=== PATIENT | female | born 1950 | race Caucasian/White ===

== ENCOUNTER 2023-02-23 07:41 | Outpatient (OUT) | payer MEDICARE, SELFPAY ==
--- NOTE | 2023-02-23 08:44 | CA_ITS ---
Patient Name: DI LONGO MR#: [id number] : 1950 Exam Date: 02/23/2023 Ordering Doctor: DR NGHIA CARDENAS M.D. ECHOCARDIOGRAM REPORT PROCEDURE: CA ECHO DOPPLER COMPLETE INDICATIONS: Structural heart disease, hypertension, h/o PFO closure COMPARISON: None. DESCRIPTION: COMPLETE ECHOCARDIOGRAM Real-time transthoracic echocardiography with 2D, M-mode, spectral and color flow Doppler performed. QUALITY: Technical quality was good. 64 , 248#, BSA 2.14 m2 LEFT VENTRICLE: Normal chamber size. Proximal septal hypertrophy (sigmoid septum). LV EF: Normal left ventricular ejection fraction, (>55%). DIASTOLIC: Normal diastolic function. ATRIAL SEPTUM: Intra-atrial septum appearance consistent with prior closure device; device appears stable. No obvious residual shunting seen by color Doppler. No subcostal windows available. LEFT ATRIUM: Normal chamber size. RIGHT ATRIUM: Normal chamber size. RIGHT VENTRICLE: Normal chamber size. Normal right ventricular systolic function. TRICUSPID VALVE: Normal mobility and thickness. No stenosis with trivial regurgitation. No evidence of pulmonary hypertension. RVSP 33 mmHg MITRAL VALVE: Normal mobility and thickness. No evidence of mitral valve stenosis. There is no mitral annular calcification. Trivial mitral regurgitation. AORTIC VALVE: Normal trileaflet appearance. No visible sclerosis. Normal leaflet mobility. No evidence of aortic valve stenosis. Mild aortic regurgitation. AORTIC ROOT: Normal diameter and appearance. PULMONIC VALVE: Normal thickness and mobility. No stenosis. Trivial regurgitation. PERICARDIUM: Anterior free space; trivial effusion versus fat pad. IVC: Not well visualized. CONCLUSION: 1. Global left ventricular systolic function is normal; visually estimated ejection fraction is 55 to 60% 2. Normal right ventricular size and systolic function 3. Normal left atrial size 4. Intra-atrial septal closure device seen; appears stable in position. No obvious residual shunt by color-flow Doppler 5. Mild aortic valve regurgitation 6. Anterior free space; trivial effusion versus fat pad Adult Echocardiography Procedure Report Left Ventricle LVEDD (3.7 - 5.6 cm): 3.66 cm LVESD (2.2 - 4.0 cm): 1.94 cm LVIVS thickness (0.6 - 1.2 cm): 1.31 cm LVPW thickness (0.5 - 1.0 cm): 0.84 cm e': 0.10 m/s E - e': 6.89 LVOT Max Gradient: 4.23 mm[Hg] LVOT Area (cm2): 1.03 m/s Peak Velocity (LVOT): 1.03 m/s Mean Velocity (LVOT): 0.70 m/s LVOT Diameter 1.92 cm Left Atrium LA Volume Index (2D A2C): 20.59 ml/m2 Left Atrium Systolic Dimension: 3.13 cm Mitral Valve MV E to A Ratio: 1.02 Mitral Valve A-Wave Peak Velocity: 0.70 m/s Mitral Valve E-Wave Peak Velocity: 0.71 m/s Right Ventricle Aorta AO Root Diam: 3.02 cm Ascending Ao Diam: 3.29 cm Aortic Valve AoV Area (Peak Eulogio): 2.13 cm2, 2.13 cm2 AoV Area (VTI): 2.50 cm2, 2.50 cm2 Peak Velocity(Antegrade Flow): 1.39 m/s Peak Gradient(Antegrade Flow): 7.78 mm[Hg] Mean Velocity(Antegrade Flow): 0.92 m/s Mean Gradient(Antegrade Flow): 3.93 mm[Hg] Velocity Time Integral: 29.73 cm Tricuspid Valve Peak Velocity (Regurgitant Flow): 2.74 m/s Pulmonic Valve Peak Velocity: 0.84 m/s Peak Gradient: 3.06 mm[Hg], 2.58 mm[Hg] Right Atrium Right Atrium Systolic Pressure: 45.77 ml, 45.77 ml Dictated by: Valerie Mcdaniels M.D. on 02/23/2023 at 14:44 Approved by: Valerie Mcdaniels M.D. on 02/23/2023 at 14:48
== END 2023-02-23 07:42 | disposition home or self-care (01) ==
LOC: CARD 07:43
PROVIDERS: PCP Nurse Practitioner Family; Visit Provider Internal Medicine Interventional Cardiology
DX: Q21.12 Patent foramen ovale (principal)
CPT/HCPCS: 93306